=== PATIENT | female | born 1980 ===

== ENCOUNTER 2017-07-16 15:20 | Emergency (ER) | payer BC ==
--- NOTE | 2017-07-16 16:31 | EDM.PDOC ---
ED HPI GENERAL MEDICAL PROBLEM - General Chief Complaint: Chest Pain Stated Complaint: CHEST PAIN Time Seen by Provider: 07/16/17 15:43 Source of Information: Reports: Patient, RN Notes Reviewed - History of Present Illness INITIAL COMMENTS - FREE TEXT/NARRATIVE: 36-year-old female comes not feeling well for the last 2 or 3 days. she had Chills, possible low-grade fever 2 days ago. Yesterday she had frequent " twinges of discomfort across her anterior chest. Today at work her chest started feeling tight and "heavy". No radiation of discomfort. She has not been short of breath. No cough fever chills or sore throat. No History of hypertension diabetes or known heart problems. She has no known medical problems , does not take any medication on a regular basis. 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 Cardiovascular History: Reports: Other (See Below) Other Cardiovascular History: palpitations Genitourinary History: Reports: Other (See Below) Other Genitourinary History: microscopic blood to urine since she has been young - Past Surgical History HEENT Surgical History: Reports: Oral Surgery Social & Family History - Tobacco Use Smoking Status *Q: Never Smoker Second Hand Smoke Exposure: No - Caffeine Use Caffeine Use: Reports: Coffee, Tea - Alcohol Use Days Per Week of Alcohol Use: 0 - Recreational Drug Use Recreational Drug Use: No ED ROS GENERAL - Review of Systems Review Of Systems: See Below Constitutional: Reports: Chills HEENT: Denies: Sinus Problem, Throat Pain (2 days ago, gone) Respiratory: Denies: Shortness of Breath, Pleuritic Chest Pain, Cough Cardiovascular: Reports: Chest Pain (Mild heaviness anterior chest today), Palpitations (Occasional "twinges of discomfort across her chest yesterday") GI/Abdominal: Denies: Abdominal Pain, Nausea, Vomiting Musculoskeletal: Denies: Neck Pain, Shoulder Pain, Arm Pain, Back Pain Skin: Reports: No Symptoms Neurological: Reports: Dizziness (Gone) ED EXAM, GENERAL - Physical Exam Exam: See Below General Appearance: Alert, No Apparent Distress Eye Exam: Bilateral Eye: PERRL Throat/Mouth: Normal Inspection, Normal Oropharynx Head: Atraumatic Neck: Supple, Full Range of Motion Respiratory/Chest: No Respiratory Distress, Lungs Clear, Normal Breath Sounds, Chest Non-Tender Cardiovascular: Normal Peripheral Pulses, Regular Rate, Rhythm GI/Abdominal: Soft, Non-Tender Extremities: Normal Inspection, Normal Range of Motion Neurological: Alert, Oriented, No Motor/Sensory Deficits Skin Exam: Warm, Dry, Normal Color EKG INTERPRETATION EKG Date: 07/16/17 Rhythm: NSR [place]: Normal P-Wave: Present QRS: Normal ST-T: Normal Course - Vital Signs Last Recorded V/S: Last Vital Signs Temp 99.2 F 07/16/17 15:30 Pulse 84 07/16/17 15:30 Resp 20 07/16/17 15:30 BP 124/93 H 07/16/17 15:30 Pulse Ox 100 07/16/17 15:30 - Orders/Labs/Meds Orders: Active Orders 24 hr Category Date Time Status EKG 12 Lead [EKG Documentation Completion] [RC] STAT Care 07/16/17 15:52 Active - Re-Assessments/Exams Free Text/Narrative Re-Assessment/Exam: 07/16/17 16:42 EKG is completely normal, he is in sinus rhythm rate in the 70s, no ectopy, sats are running 100%. She is breathing and moving air comfortably. Blood Pressure normal. No real clinical indication for further workup at this time. patient Is comfortable with that. Discharge instructions as documented. Departure - Departure Time of Disposition: 16:30 Disposition: Home, Self-Care 01 Condition: Fair Clinical Impression: Atypical chest pain Instructions: Nonspecific Chest Pain, [id number] Forms: ED Department Discharge Additional Instructions: Things look really good from a heart and lung standpoint this afternoon, follow- up clinic as needed if symptoms worsening in any way, return to ED as needed. - My Orders Last 24 Hours: My Active Orders 07/16/17 15:52 EKG 12 Lead [EKG Documentation Completion] [RC] STAT - Assessment/Plan Last 24 Hours: My Active Orders 07/16/17 15:52 EKG 12 Lead [EKG Documentation Completion] [RC] STAT
== END 2017-07-16 16:40 | disposition home or self-care (01) ==
LOC: JD.ED 15:20 → SUPCPDRO 15:20 → JD.ED 16:40
DX: R07.89 Other chest pain (principal)
CPT/HCPCS: 93005; 93010; 99284-25; 99285-25